=== PATIENT | male | born 1995 | race Caucasian/White ===

== ENCOUNTER 2018-01-22 20:29 | Observation (INO) | payer OTHER, MEDICAID ==
[~2018-01-22] VITALS: Ht 180.3 cm; Wt 83.0 kg
[2018-01-22 21:00] VITALS: BP 131/73; PULSE 74; RESP 18; TEMP 97.8; O2SAT 100
[2018-01-22] MEDS ORDERED: SODIUM CHLORIDE 0.9% FLUSH 10 ML FLUSH IV FLUSH PRN (22:00)
[2018-01-22] MEDS ORDERED: NALOXONE HCL 0.4 MG/ML AMP IV PUSH PRN (22:00)
[2018-01-22] MEDS ORDERED: CLINDAMYCIN 900 MG/NS PREMIX 50 ML IV SCH (22:15)
[2018-01-22] MEDS ORDERED: CHLORHEXIDINE GLUCONATE 2 % 1 PACK (2 CLOTHS) TOPICAL PRN (22:15)
[2018-01-22] MEDS ORDERED: ONDANSETRON HCL 4 MG/2 ML VIAL IV PUSH PRN (22:15)
[2018-01-22] MEDS ORDERED: POVIDONE IODINE 5% (ANTISEPSIS KIT) 4 APPLICATIONS EACH NARE PRN (22:15)
[2018-01-22] MEDS ORDERED: METOPROLOL TARTRATE 25 MG TAB PO PRN (22:15)
[2018-01-22] MEDS ORDERED: ACETAMINOPHEN 325 MG TAB PO PRN (22:15)
[2018-01-22] MEDS ORDERED: LACTATED RINGER'S 1000 ML IV PRN (22:15)
[2018-01-22] MEDS ORDERED: SODIUM CHLORID 0.9% 500 ML IV PRN (22:15)
[2018-01-22] MEDS ORDERED: MORPHINE SULFATE 4 MG/ML INJ IV PUSH PRN ×2 (22:15)
[2018-01-22] MEDS: SODIUM CHLOR 0.9% 1000 ML INJ 1,000 ML IV SCH (22:52)
--- NOTE | 2018-01-22 23:00 | RADRPT ---
EXAM DATE/TIME: 01/22/2018 22:33 [place] COMPARISON: No previous studies available for comparison. INDICATIONS : Evaluate mandible fracture. RADIATION DOSE: 48.90 CTDIvol (mGy) MEDICAL HISTORY : None SURGICAL HISTORY : None. ENCOUNTER: Initial ACUITY: 1 day PAIN SCORE: 7/10 LOCATION: Left mandible TECHNIQUE: Volumetric scanning of the facial bones was performed. Using automated exposure control and adjustme nt of the mA and/or kV according to patient size, radiation dose was kept as low as reasonably achiev able to obtain optimal diagnostic quality images. DICOM format image data is available electronicall y for review and comparison. FINDINGS: There is a nondisplaced fracture of the right body of the mandible. There is a slightly comminuted, m inimally displaced fracture of the left mandibular angle/ramus. Temporomandibular joints are intact a nd normally aligned. Mildly comminuted, minimally displaced fractures are seen of the anterior and posterolateral carbajal of both maxillary air cells, right worse than left. Right upper wisdom tooth is impacted. No acute abnormality of the visualized intracranial portions. CONCLUSION: 1. Minimally displaced mandible fractures, right body and left ramus. 2. Minimally displaced maxillary air cell fractures. 3. Impacted right upper wisdom tooth. Carlton Hart MD on January 22, 2018 at 22:50 Board Certified Radiologist. This report was verified electronically.
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
[2018-01-22 23:42] VITALS: BP 119/66; PULSE 88; RESP 18; TEMP 99.1; O2SAT 98
[2018-01-22] MEDS: CHLORHEXIDINE GLUCONATE 0.12% 15 ML CUP SWISH-SPIT SCH (23:44)
[2018-01-22] MEDS: CLINDAMYCIN 900 MG/NS PREMIX 50 ML IV SCH (23:56)
[2018-01-23 04:10] VITALS: BP 120/56; PULSE 68; RESP 18; TEMP 98.9; O2SAT 99
[2018-01-23] MEDS: CLINDAMYCIN 900 MG/NS PREMIX 50 ML IV SCH ×2 (05:52→15:13)
[2018-01-23 06:19] LABS: AUTOMATED NEUTROPHIL # 7.8 TH/MM3 (1.8-7.7); BASOPHIL % 0.2 % (0.0-2.0); EOSINOPHIL # 0.1 TH/MM3 (0-0.4); EOSINOPHIL % 0.5 % (0.0-4.0); HEMATOCRIT 41.7 % (39.0-51.0); LYMPHOCYTE # 1.7 TH/MM3 (1.0-4.8); MEAN CORPUSCULAR HEMOGLOBIN 27.9 PG (27.0-34.0); MEAN CORPUSCULAR HGB CONC 33.6 % (32.0-36.0); MEAN PLATELET VOLUME 9.3 FL (7.0-11.0); MONO % 8.6 % (0.0-8.0); MONOCYTE # 0.9 TH/MM3 (0-0.9); NEUT % 74.7 % (16.0-70.0); PLATELET COUNT 248 TH/MM3 (150-450); RED BLOOD COUNT 5.02 MIL/MM3 (4.50-5.90); RED CELL DISTRIBUTION WIDTH 13.1 % (11.6-17.2); WHITE BLOOD COUNT 10.4 TH/MM3 (4.0-11.0)
[2018-01-23 06:39] LABS: BICARBONATE 26.3 MEQ/L (21.0-32.0); CALCIUM 8.7 MG/DL (8.5-10.1); CREATININE 0.89 MG/DL (0.60-1.30)
[2018-01-23 08:00] VITALS: BP 119/57; PULSE 88; RESP 18; TEMP 98; O2SAT 97
[2018-01-23] MEDS: SODIUM CHLOR 0.9% 1000 ML INJ 1,000 ML IV SCH (08:00)
[2018-01-23] MEDS ORDERED: SODIUM CHLORIDE 0.9% FLUSH 10 ML FLUSH IV FLUSH SCH (09:00)
--- NOTE | 2018-01-23 11:08 | HHI.PR ---
Subjective Remarks Follow-up open mandible fracture January 23, 2018-patient seen and examined, currently n.p.o. pending evaluation for oral maxillofacial surgeon. Reports some minimal jaw pain. Mother by the bedside. Objective Vitals Vital Signs Date Time Temp Pulse Resp B/P (MAP) Pulse Ox O2 Delivery O2 Flow Rate FiO2 01/23/18 08:00 98.0 88 18 119/57 (77) 97 01/23/18 04:10 98.9 68 18 120/56 (77) 99 01/22/18 23:42 99.1 88 18 119/66 (83) 98 01/22/18 21:00 97.8 74 18 131/73 (92) 100 I/O 01/22/18 01/22/18 01/22/18 01/23/18 01/23/18 01/23/18 07:00 15:00 23:00 07:00 15:00 23:00 Intake Total 50 ml Balance 50 ml Intake Oral 0 ml IV Total 50 ml # Voids 1 # Bowel Movements 0 Result Diagram: 01/23/18 0428 01/23/18 0428 Imaging Last Impressions Maxillofacial CT 01/22/18 0000 Signed Impressions: Service Date/Time: Monday, January 22, 2018 22:33 - CONCLUSION: 1. Minimally displaced mandible fractures, right body and left ramus. 2. Minimally displaced maxillary air cell fractures. 3. Impacted right upper wisdom tooth. Carlton Hart MD Objective Remarks GENERAL: NAD SKIN: Warm and dry. HEAD: Normocephalic. EYES: No scleral icterus. No injection or drainage. Oral: TTP jaws Bilaterally NECK: Supple, trachea midline. No JVD or lymphadenopathy. CARDIOVASCULAR: Regular rate and rhythm without murmurs, gallops, or rubs. RESPIRATORY: Breath sounds equal bilaterally. No accessory muscle use. GASTROINTESTINAL: Abdomen soft, non-tender, nondistended. MUSCULOSKELETAL: No cyanosis, or edema. BACK: Nontender without obvious deformity. No CVA tenderness. A/P Problem List: (1) Open fracture of mandible ICD Code: S02.609B - Fracture of mandible, unspecified, initial encounter for open fracture Status: Acute Assessment and Plan 22-year-old man with Open fracture of mandible, acute, right and left -CT of the facial bones ordered, reviewed and shows a minimally displaced mandible fractures, right body and left ramus. -Awaiting for evaluation from maxillofacial surgery -N.p.o., IV for hydration -Pain management with IV morphine -Continue clindamycin IV, Chlorhexidine mouthwash 3 times daily DVT prophylaxis: SCDs Problem Qualifiers (1) Open fracture of mandible: Qualified Codes: S02.601B - Fracture of unspecified part of body of right mandible, initial encounter for open fracture Kamran Lozano MD Jan 23, 2018 11:08
[2018-01-23 12:00] VITALS: BP 109/56; PULSE 84; RESP 18; TEMP 98.4; O2SAT 98
[2018-01-23] MEDS: CHLORHEXIDINE GLUCONATE 0.12% 15 ML CUP SWISH-SPIT SCH ×2 (12:12→15:14)
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
[2018-01-23 16:00] VITALS: BP 124/59; PULSE 68; RESP 18; TEMP 98.2; O2SAT 98
[2018-01-23] MEDS ORDERED: CLIN300C5 PO (16:14)
[2018-01-23] MEDS ORDERED: Chlorhexidine 0.12% Liq SWISH-SPIT (16:14)
[2018-01-23] MEDS ORDERED: HYDR1ELX PO (16:14)
--- NOTE | 2018-01-23 16:18 | HHI.PR ---
Addendum to Inpatient Note Addendum Reason: Additional Documentation Additional Information Discharge patient to home Condition on discharge: Improved Regular Diet as tolerated Ad Doris activity Rx written: see EMR Follow-up with primary care physician in 1 week Oral surgery 01/26/18 Kamran Lozano MD Jan 23, 2018 16:18
== END 2018-01-23 18:23 | disposition home or self-care (01) ==
LOC: N06A 20:57
PROVIDERS: ADMIT Hospitalist; ATTEND Hospitalist
DX: S02.601A Fracture of unspecified part of body of right mandible, initial encounter for closed fracture (principal); F12.90 Cannabis use, unspecified, uncomplicated; X58.XXXA Exposure to other specified factors, initial encounter
CPT/HCPCS: 70486; 80048; 85025; 96361; 96374; 96376; G0378; J7030